=== PATIENT | male | born 1950 | race Two or more races ===

== ENCOUNTER → 2017-07-05 15:12 | Outpatient (CLI) | payer OTHER ==
[~2017-07-05 15:12] MED LIST: ASA325 MG; COZAAR100 MG; FLONASE16 GM NASAL; GLUMETZA1000 MG; JANUVIA50 MG; LEXAPRO5 MG; MECLIZINE HCL25 MG PO; NORVASC2.5 M1; ORPH100T PO; OTEZLA30 MG; PLAVIX75 MG
== END | disposition home or self-care (01) ==
LOC: PPHC 15:12
DX: R50.9 Fever, unspecified (principal); R05 Cough

== ENCOUNTER → 2017-07-05 16:34 | Outpatient (CLI) | payer OTHER | END | disposition home or self-care (01) | LOC: LAB 16:34 | DX: J06.9 Acute upper respiratory infection, unspecified (principal) ==

== ENCOUNTER → 2017-07-05 16:36 | Outpatient (CLI) | payer OTHER | END | disposition home or self-care (01) | LOC: RAD 16:36 | DX: J06.9 Acute upper respiratory infection, unspecified (principal) ==

== ENCOUNTER 2017-07-30 08:24 | Outpatient (CLI) | payer OTHER | END 2017-07-30 08:36 | disposition home or self-care (01) | LOC: SONOGRAMA 08:24 | DX: E04.1 Nontoxic single thyroid nodule (principal) ==

== ENCOUNTER 2018-05-16 15:47 | Outpatient (CLI) | payer OTHER | END 2018-05-16 17:00 | disposition home or self-care (01) | LOC: TOM 15:47 | DX: G91.8 Other hydrocephalus (principal) ==

== ENCOUNTER 2018-06-13 10:44 | Outpatient (CLI) | payer OTHER ==
[~2018-06-13] VITALS: Ht 152.4 cm; Wt 122.5 kg
== END 2018-06-13 11:00 | disposition home or self-care (01) ==
LOC: OFIC 805 10:44
DX: R42 Dizziness and giddiness (principal); J31.0 Chronic rhinitis; H90.3 Sensorineural hearing loss, bilateral; H61.23 Impacted cerumen, bilateral

== ENCOUNTER 2018-09-19 10:33 | Outpatient (CLI) | payer OTHER | END 2018-09-19 10:45 | disposition home or self-care (01) | LOC: OFIC 805 10:33 | DX: H90.41 Sensorineural hearing loss, unilateral, right ear, with unrestricted hearing on the contralateral side (principal) ==

== ENCOUNTER 2020-04-24 13:07 | Emergency (ER) | payer OTHER ==
[~2020-04-24] VITALS: Ht 177.8 cm; Wt 95.3 kg
== END 2020-04-24 15:36 | disposition home or self-care (01) ==
LOC: ER 13:07
DX: R00.1 Bradycardia, unspecified (principal); R53.81 Other malaise

== ENCOUNTER 2020-04-25 13:21 | Outpatient (CLI) | payer OTHER | END 2020-04-25 14:00 | disposition home or self-care (01) | LOC: NUCLEAR 13:21 | PROVIDERS: ATTEND Internal Medicine | DX: I11.9 Hypertensive heart disease without heart failure (principal); R00.2 Palpitations ==

== ENCOUNTER 2020-06-11 16:28 | Emergency (ER) | payer OTHER ==
[~2020-06-11] VITALS: Ht 177.8 cm; Wt 99.8 kg
[2020-06-11] MEDS ORDERED: SIMVASTATIN20 MG PO (17:12)
[2020-06-11] MEDS ORDERED: CLONAZEPAM0.5 MG PO (17:12)
[2020-06-11] MEDS ORDERED: FLUOXETINE HCL40 MG PO (17:12)
== END 2020-06-12 13:11 | disposition home or self-care (01) ==
LOC: ER 16:28 → CPU-OBS 16:31 → ER 06-12 13:11
DX: R00.1 Bradycardia, unspecified (principal); R42 Dizziness and giddiness; R53.83 Other fatigue; I10 Essential (primary) hypertension; Z03.818 Encounter for observation for suspected exposure to other biological agents ruled out

== ENCOUNTER 2021-02-17 13:43 | Outpatient (CLI) | payer OTHER ==
[~2021-02-17 13:43] MED LIST changes: +CLONAZEPAM0.5 MG PO; +FLUOXETINE HCL40 MG PO; +SIMVASTATIN20 MG PO
== END 2021-02-17 13:50 | disposition home or self-care (01) ==
LOC: SONOGRAMA 13:43
PROVIDERS: ATTEND Internal Medicine
DX: J44.1 Chronic obstructive pulmonary disease with (acute) exacerbation (principal); R07.89 Other chest pain; N18.2 Chronic kidney disease, stage 2 (mild)

== ENCOUNTER 2021-06-07 10:28 | Emergency (ER) | payer OTHER ==
[~2021-06-07] VITALS: Ht 177.8 cm; Wt 113.4 kg
[2021-06-07] MEDS ORDERED: ZYRTEC10 M3 PO (14:07)
[2021-06-07] MEDS ORDERED: ATARAX25 MG PO (14:07)
[2021-06-07] MEDS ORDERED: MEDROLPACK PO (14:07)
== END 2021-06-07 15:11 | disposition home or self-care (01) ==
LOC: ER 10:28
DX: T78.49XA Other allergy, initial encounter (principal); X58.XXXA Exposure to other specified factors, initial encounter

== ENCOUNTER → 2021-09-21 | Outpatient (CLI) | payer OTHER ==
[~2021-09-21] MED LIST changes: +ATARAX25 MG PO; +MEDROLPACK PO; +ZYRTEC10 M3 PO
== END | disposition home or self-care (01) ==
LOC: NUCLEAR 09-15 10:00
PROVIDERS: ATTEND Internal Medicine
DX: E11.22 Type 2 diabetes mellitus with diabetic chronic kidney disease (principal); I70.0 Atherosclerosis of aorta

== ENCOUNTER 2022-02-10 12:33 | Emergency (ER) | payer OTHER ==
[~2022-02-10] VITALS: Ht 172.7 cm; Wt 113.4 kg
[2022-02-10] MEDS ORDERED: COZAAR50 MG PO (13:02)
[2022-02-10] MEDS ORDERED: PROZAC40 MG PO (13:02)
== END 2022-02-10 20:36 | disposition home or self-care (01) ==
LOC: ER 12:33
DX: I10 Essential (primary) hypertension (principal); G47.30 Sleep apnea, unspecified; Z95.0 Presence of cardiac pacemaker; E11.9 Type 2 diabetes mellitus without complications; L40.9 Psoriasis, unspecified; F32.9 Major depressive disorder, single episode, unspecified

== ENCOUNTER 2022-07-10 09:51 | Outpatient (CLI) | payer OTHER ==
[~2022-07-10 09:51] MED LIST changes: +COZAAR50 MG PO; +PROZAC40 MG PO
== END 2022-07-10 09:56 | disposition home or self-care (01) ==
LOC: RAD 09:51
PROVIDERS: ATTEND Ophthalmology
DX: Z98.41 Cataract extraction status, right eye (principal); H25.011 Cortical age-related cataract, right eye

== ENCOUNTER 2022-08-30 14:20 | Outpatient (CLI) | payer OTHER | END 2022-08-30 14:30 | disposition home or self-care (01) | LOC: RAD 14:20 | PROVIDERS: ATTEND Neuromusculoskeletal Medicine & OMM | DX: M25.562 Pain in left knee (principal) ==

== ENCOUNTER 2022-08-31 13:16 | Outpatient (CLI) | payer OTHER | END 2022-08-31 13:28 | disposition home or self-care (01) | LOC: TOM 13:16 | PROVIDERS: ATTEND Neuromusculoskeletal Medicine & OMM | DX: M25.562 Pain in left knee (principal) ==

== ENCOUNTER 2022-11-12 07:53 | Outpatient (CLI) | payer OTHER | END 2022-11-12 08:05 | disposition home or self-care (01) | LOC: TOM 07:53 | PROVIDERS: ATTEND Internal Medicine | DX: R10.9 Unspecified abdominal pain (principal); R74.01 Elevation of levels of liver transaminase levels ==

== ENCOUNTER 2022-12-03 07:48 | Outpatient (CLI) | payer OTHER | END 2022-12-03 07:57 | disposition home or self-care (01) | LOC: SONOGRAMA 07:48 | PROVIDERS: ATTEND Internal Medicine | DX: K76.89 Other specified diseases of liver (principal); Q44.6 Cystic disease of liver ==

== ENCOUNTER 2023-05-15 14:19 | Outpatient (CLI) | payer OTHER | END 2023-05-15 14:24 | disposition home or self-care (01) | LOC: RAD 14:19 | DX: R06.02 Shortness of breath (principal); Z95.0 Presence of cardiac pacemaker; F17.210 Nicotine dependence, cigarettes, uncomplicated ==

== ENCOUNTER → 2024-04-09 09:10 | Outpatient (CLI) | payer OTHER | END | disposition home or self-care (01) | LOC: NUCLEAR 09:10 | DX: I73.9 Peripheral vascular disease, unspecified (principal); I87.2 Venous insufficiency (chronic) (peripheral) ==

== ENCOUNTER 2024-04-10 11:13 | Outpatient (CLI) | payer OTHER | END 2024-04-10 11:14 | disposition home or self-care (01) | LOC: NUCLEAR 11:13 | DX: I73.9 Peripheral vascular disease, unspecified (principal); I87.2 Venous insufficiency (chronic) (peripheral) ==